=== PATIENT | male | born 1950 | race African-American/Black ===

== ENCOUNTER 2021-06-10 17:27 | Emergency (ER) | payer BC, MEDICARE ==
[~2021-06-10] VITALS: Ht 172.7 cm; Wt 86.0 kg
[2021-06-10] MEDS ORDERED: ACETAMINOPHEN WITH CODEINE 300/30MG TABLET PO ONE (18:15)
[2021-06-10] MEDS ORDERED: ACET-2708 MT (19:12)
[2021-06-10 19:50] VITALS: BP 136/68
== END 2021-06-10 19:52 | disposition home or self-care (01) ==
LOC: ER 17:49
DX: S16.1XXA Strain of muscle, fascia and tendon at neck level, initial encounter (principal); S39.012A Strain of muscle, fascia and tendon of lower back, initial encounter; I12.0 Hypertensive chronic kidney disease with stage 5 chronic kidney disease or end stage renal disease; E11.22 Type 2 diabetes mellitus with diabetic chronic kidney disease; N18.6 End stage renal disease; Z99.2 Dependence on renal dialysis; Z79.899 Other long term (current) drug therapy; V49.88XA Car occupant (driver) (passenger) injured in other specified transport accidents, initial encounter; Y93.89 Activity, other specified; Y92.89 Other specified places as the place of occurrence of the external cause; Y99.8 Other external cause status
CPT/HCPCS: 72040; 99283

== ENCOUNTER 2023-04-06 08:46 | Emergency (ER) | payer BC, MEDICARE ==
[~2023-04-06] VITALS: Ht 170.2 cm; Wt 86.0 kg
[~2023-04-06 08:46] MED LIST: ACET-2708 MT
[2023-04-06 08:53] VITALS: O2SAT 100
[2023-04-06 10:03] LABS: BASOPHILS % 0.8 % (0.0-2.0); EOSINOPHILS % 0.7 % (0.0-5.0); HEMOGLOBIN. 15.9 g/dL (14.0-18.0); MEAN CORPUSCULAR HEMOGLOBIN 29.2 pg (28.0-32.0); MEAN CORPUSCULAR VOLUME 88.2 fL (80.0-94.0); MEAN PLATELET VOLUME 8.1 fl (7.4-10.4); MONOCYTES % 9.7 % (2.0-8.0); NEUTROPHILS % 64.8 % (40.0-76.0); PLATELET 184 x1000/uL (130-400); RED BLOOD CELL COUNT 5.44 mill/uL (4.7-6.1); RED CELL DISTRIBUTION WIDTH 15.6 % (11.6-14.6)
[2023-04-06 11:02] LABS: CHLORIDE 112 mEq/L (98-107)
[2023-04-06 13:00] VITALS: BP 167/62; PULSE 77; RESP 13; TEMP 97.7
== END 2023-04-06 13:49 | disposition home or self-care (01) ==
LOC: ER 08:46
DX: I82.432 Acute embolism and thrombosis of left popliteal vein (principal); E11.9 Type 2 diabetes mellitus without complications; I10 Essential (primary) hypertension; Z98.890 Other specified postprocedural states
CPT/HCPCS: 36415; 80053; 85025; 93971; 99284

== ENCOUNTER → 2024-07-11 | Day surgery (SDC) | payer MEDICARE, BC ==
[~2024-07-11] VITALS: Ht 170.2 cm; Wt 78.5 kg
[~2024-07-11] MED LIST changes: -ACET-2708 MT; +ASPIRIN/SOD BICARB/CITRIC ACID 324MG TAB EFF ONE; +ASPIRIN/SOD BICARB/CITRIC ACID 324MG TAB EFF PO NR; +ATOR20TA65 PO; +CLOP-31 PO; +INSU100I51 SUBCUT; +INSU100V36 SQ; +INSULIN REGULAR (HUMULIN R) 1000UNITS/10ML VIAL SUBCUT NR; +MAGN250T35 PO; +MULT-1204 PO; +MYCO500T PO; +OXYC-105 PO; +PHOS250T5 PO; +PRED5TAB PO; +SEMA2PEN SUBCUT; +TACR1CAP PO
[2024-07-11 08:43] LABS: BASOPHILS % 0.5 % (0.0-2.0); EOSINOPHILS % 1.2 % (0.0-5.0); HEMATOCRIT. 48.9 % (42.0-52.0); HEMOGLOBIN. 15.5 g/dL (14.0-18.0); LYMPHOCYTES % 26.3 % (20.0-50.0); MEAN CORPUSCULAR HEMOGLOBIN 29.1 pg (28.0-32.0); MEAN CORPUSCULAR HGB CONC 31.7 g/dL (31.0-37.0); MEAN CORPUSCULAR VOLUME 91.8 fL (80.0-94.0); MEAN PLATELET VOLUME 8.1 fl (7.4-10.4); MONOCYTES % 8.6 % (2.0-8.0); NEUTROPHILS % 63.4 % (40.0-76.0); PLATELET 208 x1000/uL (130-400); RED BLOOD CELL COUNT 5.33 mill/uL (4.7-6.1); RED CELL DISTRIBUTION WIDTH 13.7 % (11.6-14.6); WHITE BLOOD COUNT 7.3 x1000/uL (4.5-11.0)
[2024-07-11 08:46] LABS: POTASSIUM 4.7 mEq/L (3.5-5.1)
[2024-07-11 08:47] LABS: CALCIUM 9.8 mg/dL (8.7-10.4)
[2024-07-11 08:52] LABS: CREATININE 1.7 mg/dL (0.6-1.3)
[2024-07-11] MEDS: SODIUM CHLORIDE 0.45% 500 ML IV ONE (09:41)
== END | disposition home or self-care (01) ==
LOC: CCL 07:58
PROVIDERS: ATTEND Specialist
DX: E11.51 Type 2 diabetes mellitus with diabetic peripheral angiopathy without gangrene (principal); Z53.8 Procedure and treatment not carried out for other reasons; E78.5 Hyperlipidemia, unspecified; I10 Essential (primary) hypertension; I49.3 Ventricular premature depolarization; Z79.02 Long term (current) use of antithrombotics/antiplatelets; Z79.4 Long term (current) use of insulin; Z79.52 Long term (current) use of systemic steroids; Z79.621 Long term (current) use of calcineurin inhibitor; Z79.624 Long term (current) use of inhibitors of nucleotide synthesis; Z79.82 Long term (current) use of aspirin; Z79.85 Long-term (current) use of injectable non-insulin antidiabetic drugs; Z79.899 Other long term (current) drug therapy; Z86.718 Personal history of other venous thrombosis and embolism; Z94.0 Kidney transplant status; Z86.73 Personal history of transient ischemic attack (TIA), and cerebral infarction without residual deficits; Z98.890 Other specified postprocedural states
CPT/HCPCS: 80048; 85025; 36415; J1815

== ENCOUNTER → 2024-08-06 | Day surgery (SDC) | payer MEDICARE, BC ==
[~2024-08-06] VITALS: Ht 170.2 cm; Wt 78.5 kg
[~2024-08-06] MED LIST changes: +ACETAMINOPHEN 325MG TABLET PO PRN; -ASPIRIN/SOD BICARB/CITRIC ACID 324MG TAB EFF PO NR; +ATROPINE SULFATE 1MG/10ML SYR IV PRN; +FENTANYL CITRATE/PF 50MCG/ML 2ML VIAL ONE; +HEPARIN 1000 UNITS/ML 10ML ONE; -INSU100V36 SQ; -INSULIN REGULAR (HUMULIN R) 1000UNITS/10ML VIAL SUBCUT NR; +IODIXANOL 320MG/ML 100 ML BOTTLE IV ONE; +LIDOCAINE HCL 1% 20ML VIAL ONE; +MIDAZOLAM HCL 2 MG/2 ML VIAL ONE; +MORPHINE SULFATE 2 MG/ML INJ (NOT FOR IM USE) IV PRN; +NALOXONE HCL 0.4MG/ML VIAL IV PRN; +NOREPINEPHRINE 8MG/250ML PMX 250 ML IV ONE; +ONDANSETRON HCL 4MG/2ML INJ IV PRN; +SODIUM CHLORIDE 0.9% 500 ML IV SCH
== END | disposition home or self-care (01) ==
LOC: CCL 08:34
PROVIDERS: ATTEND Specialist
DX: E11.51 Type 2 diabetes mellitus with diabetic peripheral angiopathy without gangrene (principal); I70.203 Unspecified atherosclerosis of native arteries of extremities, bilateral legs; D75.1 Secondary polycythemia; E11.621 Type 2 diabetes mellitus with foot ulcer; E78.5 Hyperlipidemia, unspecified; I10 Essential (primary) hypertension; I77.9 Disorder of arteries and arterioles, unspecified; L97.529 Non-pressure chronic ulcer of other part of left foot with unspecified severity; Z79.02 Long term (current) use of antithrombotics/antiplatelets; Z79.52 Long term (current) use of systemic steroids; Z79.621 Long term (current) use of calcineurin inhibitor; Z79.624 Long term (current) use of inhibitors of nucleotide synthesis; Z79.82 Long term (current) use of aspirin; Z79.85 Long-term (current) use of injectable non-insulin antidiabetic drugs; Z79.899 Other long term (current) drug therapy; Z94.0 Kidney transplant status; Z98.890 Other specified postprocedural states
CPT/HCPCS: 75710; 82962; 36247; C1893; C1725 ×2; J3010; Q9967; J1644 ×2; J3490 ×2; J2250; C1769; 36246

== ENCOUNTER 2025-06-01 13:23 | Inpatient (IN) | payer MEDICARE, BC ==
[~2025-06-01] VITALS: Ht 170.2 cm; Wt 87.5 kg
[~2025-06-01 13:23] MED LIST changes: -ACETAMINOPHEN 325MG TABLET PO PRN; -ASPIRIN/SOD BICARB/CITRIC ACID 324MG TAB EFF ONE; -ATROPINE SULFATE 1MG/10ML SYR IV PRN; -FENTANYL CITRATE/PF 50MCG/ML 2ML VIAL ONE; -HEPARIN 1000 UNITS/ML 10ML ONE; -IODIXANOL 320MG/ML 100 ML BOTTLE IV ONE; -LIDOCAINE HCL 1% 20ML VIAL ONE; -MIDAZOLAM HCL 2 MG/2 ML VIAL ONE; -MORPHINE SULFATE 2 MG/ML INJ (NOT FOR IM USE) IV PRN; -NALOXONE HCL 0.4MG/ML VIAL IV PRN; -NOREPINEPHRINE 8MG/250ML PMX 250 ML IV ONE; -ONDANSETRON HCL 4MG/2ML INJ IV PRN; -SODIUM CHLORIDE 0.9% 500 ML IV SCH
[2025-06-01 13:42] VITALS: O2SAT 96
[2025-06-01 14:54] LABS: BASOPHILS % 1.0 % (0.0-2.0); EOSINOPHILS % 0.9 % (0.0-5.0); HEMATOCRIT. 43.6 % (42.0-52.0); HEMOGLOBIN. 14.6 g/dL (14.0-18.0); LYMPHOCYTES % 16.5 % (20.0-50.0); MEAN PLATELET VOLUME 8.9 fl (7.4-10.4); MONOCYTES % 9.9 % (2.0-8.0); NEUTROPHILS % 71.7 % (40.0-76.0); PLATELET 191 x1000/uL (130-400); RED BLOOD CELL COUNT 4.84 mill/uL (4.7-6.1); RED CELL DISTRIBUTION WIDTH 13.9 % (11.6-14.6)
[2025-06-01 15:08] LABS: CREATININE 1.2 mg/dL (0.6-1.3); UREA NITROGEN BLOOD 16 mg/dL (9-23)
[2025-06-01] MEDS: ENOXAPARIN 80MG/0.8ML SYR SUBCUT ONE (18:22)
[2025-06-01] MEDS ORDERED: ACETAMINOPHEN 325MG TABLET PO PRN (20:30)
[2025-06-01] MEDS ORDERED: IPRATROPIUM/ALBUTEROL 0.5-3(2.5)MG/3ML NEB HHN PRN (20:30)
[2025-06-01] MEDS ORDERED: ONDANSETRON HCL 4MG/2ML INJ IV PRN ×2 (20:30)
[2025-06-01] MEDS ORDERED: HYDRALAZINE 20MG/ML VIAL IV PRN (22:15)
[2025-06-01] MEDS ORDERED: DEXTROSE 50% WATER 50ML SYRINGE IV PRN ×2 (22:30)
[2025-06-01] MEDS ORDERED: HYDRALAZINE 10 MG in SODIUM CHLORIDE 0.9% 49.5 ML IV PRN (22:45)
[2025-06-01 23:16] LABS: CREATINE KINASE MB FRACTION 4.3 ng/mL (0.5-3.6); TROPONIN I HIGH SENSITIVITY 9 ng/L (3.0-53)
[2025-06-02] VITALS: BP 153/62; PULSE 83; RESP 18; TEMP 36.2; TEMP 36.2512; O2SAT 96
[2025-06-02 00:08] LABS: PHOSPHORUS 1.8 mg/dL (2.5-4.9)
[2025-06-02] MEDS: ACETAMINOPHEN 325MG TABLET PO PRN (03:14)
[2025-06-02 04:00] VITALS: BP 113/44; PULSE 79; RESP 18; TEMP 36.3; O2SAT 97
[2025-06-02 07:01] LABS: INR 1.0
[2025-06-02 07:04] LABS: BASOPHILS % 0.5 % (0.0-2.0); CREATINE KINASE MB FRACTION 4.2 ng/mL (0.5-3.6); EOSINOPHILS % 1.4 % (0.0-5.0); HEMATOCRIT. 43.0 % (42.0-52.0); HEMOGLOBIN. 14.3 g/dL (14.0-18.0); LYMPHOCYTES % 21.3 % (20.0-50.0); MEAN PLATELET VOLUME 9.0 fl (7.4-10.4); MONOCYTES % 11.4 % (2.0-8.0); NEUTROPHILS % 65.4 % (40.0-76.0); PLATELET 166 x1000/uL (130-400); RED BLOOD CELL COUNT 4.79 mill/uL (4.7-6.1); RED CELL DISTRIBUTION WIDTH 14.1 % (11.6-14.6)
[2025-06-02 07:05] LABS: TROPONIN I HIGH SENSITIVITY 8 ng/L (3.0-53)
[2025-06-02 07:08] LABS: CREATININE 1.0 mg/dL (0.6-1.3); T4 FREE 1.11 ng/dL (0.89-1.76); TRIGLYCERIDE 106 mg/dL (0-150)
[2025-06-02 07:09] LABS: LDL CHOLESTEROL 43 mg/dL (5-100)
[2025-06-02 07:10] LABS: ASPARTATE AMINOTRANSFERASE 20 IU/L (<34)
[2025-06-02] MEDS: INSULIN LISPRO 100 UNITS/ML SUBCUT SCH (07:10)
[2025-06-02 07:11] LABS: BILIRUBIN TOTAL 0.9 mg/dL (0.1-1.0); PROTEIN TOTAL 6.2 g/dL (6.0-8.3)
[2025-06-02] MEDS: BLOOD SUGAR DIAGNOSTIC STRIP TEST SCH (07:13)
[2025-06-02 07:14] LABS: UREA NITROGEN BLOOD 14 mg/dL (9-23)
[2025-06-02] MEDS ORDERED: TACROLIMUS 1MG CAPSULE PO SCH (09:00)
[2025-06-02] MEDS ORDERED: MYCOPHENOLATE MOFETIL 500MG TABLET PO SCH (09:00)
[2025-06-02] MEDS: ASPIRIN 81MG TABLET PO SCH (09:19)
[2025-06-02] MEDS: PREDNISONE 5MG TABLET PO SCH (09:20)
[2025-06-02] MEDS ORDERED: IOHEXOL-350 100 ML BOTTLE ONE (09:49)
[2025-06-02 12:00] VITALS: BP 133/77; PULSE 85; RESP 19; TEMP 36.6; O2SAT 95
[2025-06-02] MEDS: TACROLIMUS 1MG CAPSULE PO SCH (15:43)
[2025-06-02 16:00] VITALS: BP 139/71; PULSE 85; RESP 19; TEMP 35.9; O2SAT 95
[2025-06-02 20:00] VITALS: BP 149/61; PULSE 100; RESP 17; TEMP 36.5
[2025-06-02] MEDS: ENOXAPARIN 100MG/ML SYR SUBCUT SCH (21:46)
[2025-06-02] MEDS: ATORVASTATIN CALCIUM 20MG TABLET PO SCH (21:47)
[2025-06-02] MEDS: MYCOPHENOLATE MOFETIL 500MG TABLET PO SCH (21:51)
[2025-06-02] MEDS: FAMOTIDINE 20MG TABLET PO SCH (21:51)
[2025-06-03] VITALS (7 sets, daily range): BP systolic 117–145; BP diastolic 47–85; PULSE 76–85; RESP 18–19; TEMP 36.2–37
[2025-06-03 09:59] LABS: BASOPHILS % 0.4 % (0.0-2.0); EOSINOPHILS % 1.4 % (0.0-5.0); HEMATOCRIT. 47.1 % (42.0-52.0); HEMOGLOBIN. 15.5 g/dL (14.0-18.0); LYMPHOCYTES % 31.9 % (20.0-50.0); MEAN PLATELET VOLUME 9.3 fl (7.4-10.4); MONOCYTES % 12.0 % (2.0-8.0); NEUTROPHILS % 54.3 % (40.0-76.0); PLATELET 215 x1000/uL (130-400); RED BLOOD CELL COUNT 5.27 mill/uL (4.7-6.1); RED CELL DISTRIBUTION WIDTH 14.4 % (11.6-14.6)
[2025-06-03 10:14] LABS: CREATININE 1.2 mg/dL (0.6-1.3); UREA NITROGEN BLOOD 14 mg/dL (9-23)
[2025-06-03 10:15] LABS: ASPARTATE AMINOTRANSFERASE 22 IU/L (<34)
[2025-06-03 10:16] LABS: BILIRUBIN TOTAL 0.9 mg/dL (0.1-1.0); PHOSPHORUS 2.0 mg/dL (2.5-4.9); PROTEIN TOTAL 7.2 g/dL (6.0-8.3)
[2025-06-03 10:29] LABS: INR 1.0
[2025-06-03] MEDS: POTASSIUM PHOSPHATE 20 MMOL in DEXT 5% WATER 243.3333 ML IV NR (12:50)
[2025-06-03] MEDS ORDERED: APIX5TAB MT (15:23)
[2025-06-03] MEDS ORDERED: APIX5TAB PO (15:23)
== END 2025-06-03 17:17 | disposition home or self-care (01) | DRG 299 ==
LOC: ER 13:23 → ENRESERV 20:03 → 7EST 20:59
PROVIDERS: ADMIT Internal Medicine; ATTEND Internal Medicine
DX: I82.4Z2 Acute embolism and thrombosis of unspecified deep veins of left distal lower extremity (principal); N18.6 End stage renal disease; I12.0 Hypertensive chronic kidney disease with stage 5 chronic kidney disease or end stage renal disease; D84.821 Immunodeficiency due to drugs; Z94.0 Kidney transplant status; E11.51 Type 2 diabetes mellitus with diabetic peripheral angiopathy without gangrene; E11.22 Type 2 diabetes mellitus with diabetic chronic kidney disease; Z96.41 Presence of insulin pump (external) (internal); K21.9 Gastro-esophageal reflux disease without esophagitis; E66.811 Obesity, class 1; E78.5 Hyperlipidemia, unspecified; Z79.01 Long term (current) use of anticoagulants; Z79.60 Long term (current) use of unspecified immunomodulators and immunosuppressants; Z79.82 Long term (current) use of aspirin; Z79.85 Long-term (current) use of injectable non-insulin antidiabetic drugs; Z79.899 Other long term (current) drug therapy; Z86.718 Personal history of other venous thrombosis and embolism; Z79.4 Long term (current) use of insulin; Z68.30 Body mass index [BMI] 30.0-30.9, adult
CPT/HCPCS: 36415; 71045; 71275; 80048; 80053; 80061; 82550; 82553; 82962; 83036; 83605; 83735; 83880; 84100; 84439; 84443; 84484; 85025; 85379; 93005; 93923; 93971; 99285; J1650; J1815; J3490; J7060; J7507; J7512; J7517; Q9967